=== PATIENT | female | born 1945 | race Caucasian/White ===

== ENCOUNTER 2018-06-20 18:09 | Inpatient (IN) | payer OTHER ==
--- NOTE | 2018-06-20 18:19 | EDPHY ---
H & P Time Seen by Provider: 06/20/18 18:14 HPI/ROS: CHIEF COMPLAINT: Shortness of breath HISTORY OF PRESENT ILLNESS: Brought in by EMS. The initial story was that she ran out of oxygen today. However when I interview the patient is she says she was at a nursing facility in [place] until about a month ago. She was discharged with oxygen concentrator but has been living in a van for at least the last 3 and half weeks with no place to plug it in. She has had COPD and quit smoking at age 41 but normally wears 3 L nasal cannula. She has been getting progressively more short of breath then today became a lot worse. She was unable to get [facility] the [facility] and so her caregiver Tony who is her son's girlfriend called 911 to have her transported to the ER. She does feel better with oxygen. She never had chest pain or cough or leg swelling or fever or chills. Symptoms were severe and now are mild. REVIEW OF SYSTEMS: Eye: no change in vision ENT: no sore throat Cardiac: no chest pain or syncope Pulmonary: HPI Abdomen: no vomiting, diarrhea, abdominal pain. Eating and drinking less, is hungry and thirsty. Musculoskeletal: no back pain Skin: no rash Neuro: no headache Constitutional: no fever : no urinary symptoms A comprehensive 10 point review of systems is otherwise negative aside from elements mentioned in the history of present illness. PAST MEDICAL HISTORY: COPD chronically on 3 L nasal cannula oxygen. Cardiac bypass 2 years ago in [place]. Diabetes. Tells me she was hospitalized last at [facility], records requested including EKG and chemistry. Social history: Homeless, lives in a van General Appearance: Alert and conversant, cooperative. Eyes: No scleral icterus. ENT, Mouth: slightly dry mucous membranes. Respiratory: Normal respiratory effort, breath sounds equal, lungs are clear to auscultation. Mildly tachypneic but 99% on 3 L nasal cannula. Cardiovascular: Regular rate and rhythm. Gastrointestinal: Abdomen is soft and non tender. Neurological: Alert, face symmetric, normal motor and sensory in extremities. Skin: Warm and dry, no rashes. Musculoskeletal: Bilateral 2+ peripheral edema but no calf tenderness. Psychiatric: Appears moderately anxious. Emergency Department course/MDM: CBC and chemistry, troponin and D-dimer. EKG and chest x-ray. 1926: BUN greater than 70, creatinine 2.1. Patient also unable to be discharged because no way to get her oxygen tonight. Hospitalist consult for admission, dyspnea and acute kidney injury. Normal saline 500 ml intravenous after discussion with hospitalist Dr. El. D-dimer is 1.3, unable to do CT a because of creatinine, bilateral venous ultrasound ordered. 2012: no DVT on bilateral US per Jorge. Constitutional: Initial Vital Signs Temperature (C) 36.8 C 06/20/18 18:18 Heart Rate 90 06/20/18 18:18 Respiratory Rate 20 06/20/18 18:18 Blood Pressure 170/116 H 06/20/18 18:18 O2 Sat (%) 92 06/20/18 18:18 O2 Delivery Mode Nasal Cannula O2 (L/minute) 3 Allergies/Adverse Reactions: diazepam [From Valium] Allergy (Verified 06/20/18 18:17) Home Medications: Medication Instructions Recorded Lantus 06/20/18 Xanax 06/20/18 Medical Decision Making - Diagnostics EKG Interpretation: 12-lead EKG interpreted by me; official reading is in computer system. My interpretation is sinus rhythm rate 78 with right bundle branch block. LVH with nonspecific anterior repolarization abnormality. Imaging Results: Imaging Impressions Chest X-Ray 06/20/18 18:29 Impression: Cardiac silhouette enlargement with sequela of prior CABG, but no evidence of CHF or focal infiltrate. Imaging: I viewed and interpreted images myself Differential Diagnosis: Differential diagnosis considered for shortness of breath including but not limited to pulmonary infectious process, COPD, asthma, pulmonary embolus and congestive heart failure. Consult/Admit Bed Type: [place] [id number] - Data Points Laboratory Results: Laboratory Results 06/20/18 19:00 06/20/18 19:00 06/20/18 06/20/18 06/20/18 19:17 19:00 19:00 WBC RBC Hgb Hct MCV MCH MCHC RDW Plt Count MPV Neut % (Auto) Lymph % (Auto) Armstrong % (Auto) Eos % (Auto) Baso % (Auto) Nucleat RBC Rel Count Absolute Neuts (auto) Absolute Lymphs (auto) Absolute Monos (auto) Absolute Eos (auto) Absolute Basos (auto) Absolute Nucleated RBC Immature Gran % Immature Gran # D-Dimer 1.31 ug/mLFEU H ug/mLFEU REJ (0.00-0.50) Sodium 134 mEq/L L mEq/L (135-145) Potassium 5.5 mEq/L H mEq/L (3.3-5.0) Chloride 93 mEq/L L mEq/L (97-110) Carbon Dioxide 27 mEq/l mEq/l (22-31) Anion Gap 14 mEq/L mEq/L (6-14) BUN 72 mg/dL H mg/dL (7-23) Creatinine 2.1 mg/dL H mg/dL (0.6-1.0) Estimated GFR 23 Glucose 281 mg/dL H mg/dL (70-100) Calcium 9.6 mg/dL mg/dL (8.5-10.4) POC Troponin I NT-Pro-B Natriuret Pep 32913 pg/mL H pg/mL (0-125) 06/20/18 06/20/18 19:00 18:43 WBC 10.07 10^3/uL H 10^3/uL (3.80-9.50) RBC 3.69 10^6/uL L 10^6/uL (4.18-5.33) Hgb 11.0 g/dL L g/dL (12.6-16.3) Hct 33.8 % L % (38.0-47.0) MCV 91.6 fL fL (81.5-99.8) MCH 29.8 pg pg (27.9-34.1) MCHC 32.5 g/dL g/dL (32.4-36.7) RDW 16.3 % H % (11.5-15.2) Plt Count 330 10^3/uL 10^3/uL (150-400) MPV 10.7 fL fL (8.7-11.7) Neut % (Auto) 61.0 % % (39.3-74.2) Lymph % (Auto) 27.5 % % (15.0-45.0) Armstrong % (Auto) 7.9 % % (4.5-13.0) Eos % (Auto) 2.6 % % (0.6-7.6) Baso % (Auto) 0.6 % % (0.3-1.7) Nucleat RBC Rel Count 0.0 % % (0.0-0.2) Absolute Neuts (auto) 6.14 10^3/uL 10^3/uL (1.70-6.50) Absolute Lymphs (auto) 2.77 10^3/uL 10^3/uL (1.00-3.00) Absolute Monos (auto) 0.80 10^3/uL 10^3/uL (0.30-0.80) Absolute Eos (auto) 0.26 10^3/uL 10^3/uL (0.03-0.40) Absolute Basos (auto) 0.06 10^3/uL 10^3/uL (0.02-0.10) Absolute Nucleated RBC 0.00 10^3/uL 10^3/uL (0-0.01) Immature Gran % 0.4 % % (0.0-1.1) Immature Gran # 0.04 10^3/uL 10^3/uL (0.00-0.10) D-Dimer Sodium Potassium Chloride Carbon Dioxide Anion Gap BUN Creatinine Estimated GFR Glucose Calcium POC Troponin I 0.04 ng/mL ng/mL (0.00-0.08) NT-Pro-B Natriuret Pep Medications Given: Albuterol/Ipratropium (Duoneb) 3 ml IH QID TERRIE Stop: 12/17/18 20:59 Last Admin: 06/20/18 21:44 Dose: Not Given Discontinued Medications Sodium Chloride (Ns) 500 mls @ 1,000 mls/hr IV EDNOW ONE PRN Reason: Protocol Stop: 06/20/18 20:06 Last Admin: 06/20/18 19:50 Dose: 500 mls Point of Care Test Results: Chemistry 06/20/18 18:43 POC Troponin I 0.04 ng/mL ng/mL (0.00-0.08) Departure - Departure Disposition: [facility] Inpatient Acute Clinical Impression: EBER (acute kidney injury) COPD (chronic obstructive pulmonary disease) Qualifiers: COPD type: unspecified COPD Qualified Code(s): J44.9 - Chronic obstructive pulmonary disease, unspecified Condition: Fair
--- NOTE | 2018-06-20 18:50 | CPEKG ---
Test Reason : OPEN Blood Pressure : / mmHG Vent. Rate : 078 BPM Atrial Rate : 078 BPM P-R Int : 235 ms QRS Dur : 134 ms QT Int : 460 ms P-R-T Axes : 066 -49 116 degrees QTc Int : 525 ms Sinus rhythm Prolonged TX interval Right bundle branch block LVH with IVCD and secondary repol abnrm Prolonged QT interval Confirmed by Ronen Fortune ([id number]) on 06/20/2018 6:49:54 PM Referred By: Confirmed By:Ronen Fortune
[2018-06-20 19:10] LABS: PLATELET COUNT 330 10^3/uL (150-400)
[2018-06-20] MEDS ORDERED: NS 500 ML IV ONE ×2 (19:27→19:37)
[2018-06-20] MEDS ORDERED: ONDANSETRON DISINTEGRATING 4 MG TAB PO PRN (19:44)
[2018-06-20] MEDS ORDERED: ACETAMINOPHEN 325 MG TAB PO PRN (19:44)
[2018-06-20] MEDS ORDERED: ONDANSETRON 4 MG/2 ML VIAL IVP PRN (19:44)
[2018-06-20] MEDS ORDERED: NS 1,000 ML IV SCH (19:45)
[2018-06-20] MEDS ORDERED: SODIUM POLY SULF 15 GM/60 ML BOTTLE PO ONE (20:57)
--- NOTE | 2018-06-20 21:23 | PDGENHP ---
History and Physical - Chief Complaint Acute shortness of breath - History of Present Illness Primary care provider: None HPI: 72-year-old female presents with acute shortness of breath characterized as inability to take a full breath with onset of symptoms approximately 3 weeks ago and persistent duration and worsening thereafter. Patient reports that the onset of symptoms: Sided to her being discharged from [facility], where she was discharged with a concentrator for 3LPM outpatient supplemental oxygen. Because the patient is homeless, she would have to plug her concentrator into the plastic eye technician outlet in the van in which she is living, and she has been unable to consistently do so for the past several weeks. Consequently, the patient began experiencing shortness of breath with associated weakness located in her bilateral lower extremities, resulting in her knees buckling with most activity. As a result, she has been mostly immobile in the van. She does endorse approximately 1 day ago she did have some associated chest pain characterized as a pounding sensation located in her central chest and it was transient in nature, currently gone. Her shortness of breath has been alleviated by placing her on 3 L supplemental oxygen in the emergency department. She also endorses low oral intake of solids and liquids secondary to inability to access in the context of her immobility. She reports she has continued to take her home medications, up through the morning doses of the day of presentation. She believes that she is taking a diuretic but does not know the names of any of her medications. She reports that she is not taking any inhalers. She is residing in this van with her son and his girlfriend. She relocated to [place] with her son approximately 2 months ago. Since that time, she was admitted to [facility] where she reports she received extensive testing, and was discharged to a [facility]. To his discharge from that facility 3 weeks ago. History Information - Allergies/Home Medication List Allergies/Adverse Reactions: diazepam [From Valium] Allergy (Verified 06/20/18 18:17) Home Medications: Lantus 06/20/18 [Last Taken Unknown] Xanax 06/20/18 [Last Taken Unknown] I have personally reviewed and updated: family history, medical history, social history, surgical history - Past Medical History Additional medical history: Chronic kidney disease, as reported to the patient [facility]. Coronary artery disease. CVA. COPD with chronic hypoxic respiratory failure, 3 liters/minute at baseline - Surgical History Reports: coronary bypass surgery (Approximately 2 years ago in [place]) - Family History Additional family history: No family history of end-stage renal disease, her son and his girlfriend have not had any recent respiratory symptoms - Social History Smoking Status: Former smoker Alcohol Use: None Drug Use: None Additional social history: Currently homeless, residing in a van with her son, relocated to [place] from [place] 2 months ago Review of Systems Review of Systems: ROS: 10pt was reviewed & negative except for what was stated in HPI & below Constitutional: Reports: weakness Cardiac: Reports: chest pain Respiratory: Reports: shortness of breath Physical Exam Physical Exam: Temp Pulse Resp BP Pulse Ox 36.4 C 80 16 161/95 H 100 06/20/18 20:40 06/20/18 20:40 06/20/18 20:40 06/20/18 20:40 06/20/18 20:40 O2 (L/minute) 3 Constitutional: no apparent distress, not in pain, chronically ill appearing, uncomfortable Eyes: PERRL, EOMI, scleral injection Ears, Nose, Mouth, Throat: moist mucous membranes, ears appear normal, no oral mucosal ulcers, hard of hearing Cardiovascular: regular rate and rhythym, no murmur, rub, or gallop, No edema Respiratory: no respiratory distress, no rales or rhonchi, clear to auscultation , No respiratory distress Gastrointestinal: normoactive bowel sounds, soft, non-tender abdomen, No distension Skin: warm, No rash Neurologic: AAOx3, No weakness, No facial droop Psychiatric: interacting appropriately, not anxious, not encephalopathic, thought process linear Lab Data & Imaging Review 06/20/18 19:00 06/20/18 19:00 WBC 10.07 10^3/uL (3.80-9.50) H 06/20/18 19:00 RBC 3.69 10^6/uL (4.18-5.33) L 06/20/18 19:00 Hgb 11.0 g/dL (12.6-16.3) L 06/20/18 19:00 Hct 33.8 % (38.0-47.0) L 06/20/18 19:00 MCV 91.6 fL (81.5-99.8) 06/20/18 19:00 MCH 29.8 pg (27.9-34.1) 06/20/18 19:00 MCHC 32.5 g/dL (32.4-36.7) 06/20/18 19:00 RDW 16.3 % (11.5-15.2) H 06/20/18 19:00 Plt Count 330 10^3/uL (150-400) 06/20/18 19:00 MPV 10.7 fL (8.7-11.7) 06/20/18 19:00 Neut % (Auto) 61.0 % (39.3-74.2) 06/20/18 19:00 Lymph % (Auto) 27.5 % (15.0-45.0) 06/20/18 19:00 [place] % (Auto) 7.9 % (4.5-13.0) 06/20/18 19:00 Eos % (Auto) 2.6 % (0.6-7.6) 06/20/18 19:00 Baso % (Auto) 0.6 % (0.3-1.7) 06/20/18 19:00 Nucleat RBC Rel Count 0.0 % (0.0-0.2) 06/20/18 19:00 Absolute Neuts (auto) 6.14 10^3/uL (1.70-6.50) 06/20/18 19:00 Absolute Lymphs (auto) 2.77 10^3/uL (1.00-3.00) 06/20/18 19:00 Absolute Monos (auto) 0.80 10^3/uL (0.30-0.80) 06/20/18 19:00 Absolute Eos (auto) 0.26 10^3/uL (0.03-0.40) 06/20/18 19:00 Absolute Basos (auto) 0.06 10^3/uL (0.02-0.10) 06/20/18 19:00 Absolute Nucleated RBC 0.00 10^3/uL (0-0.01) 06/20/18 19:00 Immature Gran % 0.4 % (0.0-1.1) 06/20/18 19:00 Immature Gran # 0.04 10^3/uL (0.00-0.10) 06/20/18 19:00 D-Dimer 1.31 ug/mLFEU (0.00-0.50) H 06/20/18 19:17 Sodium 134 mEq/L (135-145) L 06/20/18 19:00 Potassium 5.5 mEq/L (3.3-5.0) H 06/20/18 19:00 Chloride 93 mEq/L (97-110) L 06/20/18 19:00 Carbon Dioxide 27 mEq/l (22-31) 06/20/18 19:00 Anion Gap 14 mEq/L (6-14) 06/20/18 19:00 BUN 72 mg/dL (7-23) H 06/20/18 19:00 Creatinine 2.1 mg/dL (0.6-1.0) H 06/20/18 19:00 Estimated GFR 23 06/20/18 19:00 Glucose 281 mg/dL (70-100) H 06/20/18 19:00 Calcium 9.6 mg/dL (8.5-10.4) 06/20/18 19:00 POC Troponin I 0.04 ng/mL (0.00-0.08) 06/20/18 18:43 NT-Pro-B Natriuret Pep 01472 pg/mL (0-125) H 06/20/18 19:00 Visualized and Interpreted Chest x-ray results: Yes Chest X-Ray results: other (Cardiomegaly) Visualized and Interpreted EKG results: Yes EKG Interpretation: Positive for: other (Right bundle branch block with normal sinus rhythm, intraventricular conduction delay, PVCs) Assessment & Plan Assessment: 72-year-old female presents with shortness of breath in the setting of chronic hypoxic respiratory failure, suspected acute kidney injury on chronic kidney disease, hyperkalemia Plan: 1. Shortness of breath. Acute, new problem this provider, further workup indicated. Unclear whether the patient was purely experiencing hypoxia related symptoms secondary to inability to access supplemental oxygen prescribed for chronic hypoxic respiratory failure verses more acute conditions such as a pulmonary embolism or congestive heart failure -D-dimer positive, lower extremities negative for DVT, get V/Q scan in the setting of elevated serum creatinine level -given that she is not tachycardic, she is not experiencing chest pain, will hold off on heparin drip tonight unless the patient begins developing symptoms more suggestive of pulmonary embolism -will check echocardiogram to evaluate ejection fraction as the patient reports that she has heart muscle dysfunction and has an echo for comparison at [facility] approximately 2 months ago -will order outside records from [facility] as the patient reports extensive cardiac testing comma for comparison -will continue on supplemental oxygen 2. Chronic hypoxic respiratory failure. Patient has reported COPD and was prescribed supplemental oxygen at discharge from [facility] as well as from her penitentiary facility, and she has had inability to access supplemental oxygen due to homelessness -continue on 3 L nasal cannula 3. COPD. Chronic, no evidence of acute exacerbation, will provide her with DuoNeb treatments to see if this symptomatically improved her condition -would recommend establishing care with outpatient pulmonology, will start Advair at this time, recommend Spiriva at time of discharge 4. Coronary artery disease. Chronic, continue home medications once reconciled 5. Hyperkalemia. Secondary to acute kidney injury, give Kayexalate, repeat in a.m., monitor on telemetry 6. Suspected acute kidney injury on chronic kidney disease stage 3. Unclear creatinine baseline, will obtain records from [facility] to determine her creatinine level at time of their discharge -most likely acute hypovolemic component with ongoing use of diuretic as well as probable Yan inhibitor or ARB affect, depending on medication reconciliation -will give normal saline at 100 cc an hour and repeat serum creatinine level in a.m., monitoring strict I&Os and daily weights given her risk of CHF 7. Lower extremity weakness. Most likely secondary to a combination of undertreated conditions above as well as deconditioning from recent hospitalization -get PT and OT assessments -strong suspicion the patient may require penitentiary facility at time of discharge Diet. Renal Prophylaxis. High risk patient, heparin subcu Code. Do not resuscitate per patient, her son is MD WICK Disposition. Anticipated discharge uncertain this time, anticipated length stay is greater than 48 hr for reasonable medical necessity including acute kidney injury, respiratory failure, further workup required for high-level of medical complexity with high risk of worsening morbidity and/or mortality. I have discussed patient's presentation with Dr. Ronen Fortune, he and I both agree the patient meets inpatient criteria and is safe for the PCU.
[2018-06-20] MEDS: IPRATROPIUM/ALBUTEROL 3 ML DEYVIAL IH SCH (21:44)
[2018-06-21 06:12] LABS: PLATELET COUNT 273 10^3/uL (150-400)
[2018-06-21] MEDS: IPRATROPIUM/ALBUTEROL 3 ML DEYVIAL IH SCH ×4 (06:18→19:50)
--- NOTE | 2018-06-21 07:17 | PDMN ---
Medical Necessity Medical necessity: Pt meets IP criteria per & DANIELA M-[id number]; est los >2 mn for eval/tx of acute kidney injury w/hyperkalemia, respiratory failure & LE weakness ; admit for further workup/monitoring, IVFs, respiratory supportive care & therapies; comorbid CKD, CAD, CABG, CVA, COPD w/chronic respiratory failure & homelessness; per H&P & order 06/20/18
[2018-06-21] MEDS: FLUTICASONE/SALMETER 250/50MCG DISKUS IH SCH ×2 (09:13→19:51)
--- NOTE | 2018-06-21 12:28 | HOSPPROG ---
Hospitalist Progress Note Assessment/Plan: 72 yo female with h/o chronic hypoxemia in setting of CHF, COPD, Chronic hypoxemic respiratory failure 2/2 COPD and HF - Suspect increased HF symptoms, no e/o COPD exacerbation. Baseline O2 is 3 LPM. BNP elevated with crackles on exam. D dimer elevated, unable to get CTA with elevated Cr. -V/Q scan to further evaluate for PE- pt refused -resume bumex (was on 2 mg bid, will give 1 mg bid and watch renal function) -cont O2, at baseline 3 LPM -cont duonebs, start spiriva at dc -advair started, no indication for systemic steroids Acute systolic heart failure / ICM - per [facility] cards, EF was 20% on 04/11/2018 echo , repeat echo here EF is 40-45% with hypokinesis of unclear chronicity. -Bumex as above -monitor I&O's, daily weights -may warrant further ischemic eval, cardiology to consult H/O LV thrombus - per piping engineer at [facility], apical thrombus was present in 2017. She refused warfarin and was prescribed Xarelto at discharge, but I don' t think she is taking this -discussed echo with Dr Briggs, no obvious apical thrombus -likely repeat echo with definity study in am for further evaluation -will give 1 mg / kg lovenox now until this is sorted out CAD with h/o CABG in 2016 in [place] - CP free today. RBBB on ekg. Sounds like she is non-compliant with meds, but was Rx'd ASA, Coreg and statin -restart ASA, BB, statin -cardiology to consult as above EBER / CKD - Cr 2.1 on arrival, was 1.7-1.9 at [facility] after diuresis. Suspect cardiorenal syndrome. U/S here showed medical renal dz, nl PVR -send ua, urine Cr and Na- pt has been incontinent, difficulty obtaining specimen -monitor closely with diuretics Anemia - normocytic, suspect ACD, no e/o active bleeding -check hemoccult, outpt c-scope if positive -send iron studies H/O CVA - resume ASA, statin DM - bg's 200's, a1c pending -start basal/bolus insulin -no MTF with elevated Cr Cognitive impairment - she is A&O x3, with poor coping skills. She did not fill the Rx's sent to [facility] upon discharge from [facility] -cog eval requested -check CT brain given CVA hx DNR DVT PPLX - Lovenox tonight, reconsider anticoagualation tomorrow vs TERRIE Dispo - cont inpt. Pt is homeless, living in van with 2 other adults and large dog. CM involved for resources, PT/OT evals, may warrant SNF Subjective: Pt feels a bit better today. Not SOB at rest, had some CP, but not currently. No fevers/chills, cough or sputum production. She cries about concept of getting a new IV, "stop treating me like a pin cushion". Asks for her son. Objective: Vital Signs Temp Pulse Resp BP Pulse Ox 37.0 C 86 20 146/76 H 98 06/21/18 11:36 06/21/18 11:47 06/21/18 11:47 06/21/18 11:36 06/21/18 11:47 Laboratory Results 06/21/18 05:34 06/21/18 05:34 06/20/18 06/21/18 06/22/18 05:59 05:59 05:59 Intake Total 740 Balance 740 - Physical Exam Constitutional: no apparent distress Eyes: PERRL Ears, Nose, Mouth, Throat: moist mucous membranes Cardiovascular: regular rate and rhythym Respiratory: no respiratory distress, other (bibasilar crackles) Gastrointestinal: normoactive bowel sounds, soft, non-tender abdomen Skin: warm Musculoskeletal: generalized weakness Neurologic: AAOx3 Psychiatric: encephalopathic, poor insight, poor judgement, poor memory ICD10 Worksheet Patient Problems: Problems Problem Status Onset EBER (acute kidney injury) Acute COPD (chronic obstructive pulmonary disease) Acute
[2018-06-21] MEDS ORDERED: ALBUTEROL 3 ML DEYVIAL IH PRN (12:29)
[2018-06-21] MEDS ORDERED: ASPIRIN EC 81 MG TAB PO SCH (12:45)
--- NOTE | 2018-06-21 13:05 | ECHO ---
[email or web address] [address] Main: [phone] Fax: Transthoracic Echocardiogram Name: ALMA SCHWARTZ MR#: [id number] Study Date: 06/21/2018 Study Time: 11:16 AM Date of : 1945 Age: 72 year(s) Height: 157.5 cm (62 in.) Weight: 77.11 kg (170 lb.) BSA: 1.78 m2 Gender: Female Examination: Echo Indication: Cardiac: dyspnea, Hx of CABG Image Quality: Contrast: Requested by: Charles El BP: 160 mmHg/84 mmHg Heart Rate: Rhythm: Indication: Cardiac: dyspnea, Hx of CABG Procedure Staff Transplant Nurse Practitioner: Duy Mckeon RDCS Reading Physician: Edward Briggs MD Requesting Provider: Measurements: Chambers Valvular Assessment AV/MV Valvular Assessment TV/PV Normal Normal Normal Name Value Range Name Value Range Name Value Range Ao Agata (MM): 2.9 cm (2.2 cm-3.7 AV Vmax: 1.71 m/s (1 m/s-1.7 PV Vmax: 0.96 m/s (0.6 m/s-0.9 cm) m/s) m/s) IVSd (2D): 1.2 cm (0.6 cm-1.1 AV maxP mmHg ( - ) PV PGmax: 4 mmHg ( - ) cm) LVOT Vmax: 0.95 m/s (0.7 m/s-1.1 LVDd (2D): 5.3 cm (3.9 cm-5.3 m/s) cm) MV E Vmax: 1.39 m/s ( - ) LVDs (2D): 4.1 cm (2.1 cm-4 cm) LVPWd (2D): 1.0 cm ( - ) LVEF (BP): 43 % (>=55 %) Continued Measurements: Chambers Valvular Assessment AV/MV Name Value Name Value LADs Lon.3 cm MV E' Septal: 0.06 m/s LA Area: 22.0 cm2 MV E/E' Septal: 23.00 LA Volume: 59 ml MV E/E' Lateral: 14.40 LA Volume Index: 33.1 ml/m2 Findings: Left Ventricle: Normal size left ventricle. Diastolic dysfunction is present. . There is inferior, inferoseptal hypokinesis and apical hypokinesis with the EF estimated at 40-45%. Right Ventricle: Patient: ALMA SCHWARTZ Study Date: 06/21/2018 Page 1 of 2 11:16 AM Normal size right ventricle. Normal RV function. Left Atrium: The left atrium is normal in size. Right Atrium: The right atrium is normal in size. Mitral Valve: Mild mitral valve leaflet calcification is present. Trivial to mild mitral regurgitation. Aortic Valve: Mild aortic cusp calcification is noted. Trivial aortic valve regurgitation. No aortic valve stenosis is present. Tricuspid Valve: The tricuspid valve is normal in appearance and function. Pulmonic Valve: The pulmonic valve is normal in appearance and function. Aorta: The aorta is normal. Pericardium: No pericardial effusion. (No Signature Object) Patient: ALMA SCHWARTZ Study Date: 06/21/2018 Page 2 of 2 11:16 AM [id number]
[2018-06-21] MEDS ORDERED: CLOPIDOGREL BISULFATE 75 MG TAB PO SCH (13:45)
[2018-06-21] MEDS ORDERED: D50W 25 GM/50 ML SYR IVP PRN (13:48)
[2018-06-21] MEDS ORDERED: HEPARIN 5,000 UNIT/0.5 ML INJ SC SCH (14:00)
[2018-06-21] MEDS ORDERED: CARVEDILOL 25 MG TAB PO SCH (14:16)
[2018-06-21] MEDS ORDERED: ENOXAPARIN 40 MG/0.4 ML SYR SC ONE (14:43)
--- NOTE | 2018-06-21 15:02 | PDCARCONS ---
Cardiology Consult Reason for Consult: Known coronary artery disease, prior coronary artery bypass graft surgery, current admission with dyspnea. Chief Complaint: Shortness of breath. Requesting Physician: Dr. Divina Light. History of Present Illness: This is a 72-year-old female seen in consultation on the progressive care unit. She has known cardiovascular disease to include coronary artery disease with previous bypass surgery in 2016 at [facility] by Dr. Wilder. She states, that at that time, she has presented with an acute myocardial infarction. She underwent coronary artery bypass graft surgery during that hospitalization. She has not required any additional treatments per her recollection. Additionally, she has a history of hypertension, hyperlipidemia and chronic renal insufficiency. She was recently hospitalized at [facility] and released to a fdc facility where she remained up until April 13. During that hospitalization she was treated for congestive heart failure. Apparently, her ejection fraction was noted to be about 25% and it was thought that she had a left ventricular apical thrombus. She was subsequently discharged on appropriate guideline directed medical therapy which , per the report of the on-call first aid attendant at [facility], included systemic anticoagulation in the form of Xarelto. Furthermore, she has a history of COPD which is oxygen dependent. Apparently, she has been on 3 L nasal cannula oxygen ever since her cardiac surgery 2 years ago. Unfortunately, she is currently homeless. She lives in a van with her son and her son's girlfriend as well as 2 dogs. She does not smoke however apparently the son and son's girlfriend both smoke and at time smoke in the van. She has not been able to wear her oxygen as she has not had a place to plug in her concentrator. She states that she has been experiencing significant shortness of breath. Her sensation of dyspnea tends to occur regardless of being active or being sedentary. She has not had orthopnea. She notes no significant edema. She also notes no fever, chills, sweats or cough. She states that she is unable to walk. Apparently her legs have been weak ever since her heart surgery. She has a wheelchair that she uses. Because of her dyspnea her son's girlfriend called EMS and she was brought to the hospital here and admitted. After being placed back on nasal cannula oxygen she states that she feels much better and in fact she feels wonderful. She feels back to her baseline. At no time did she have chest pain. History Information - Allergies/Home Medication List Allergies/Adverse Reactions: diazepam [From Valium] Allergy (Verified 06/20/18 18:17) Home Medications: Lantus 06/20/18 [Last Taken Unknown] Xanax 06/20/18 [Last Taken Unknown] I have personally reviewed and updated: family history, medical history, social history, surgical history Past Medical History: - Past Medical History Additional medical history: Coronary artery disease as described above, type 2 diabetes mellitus currently insulin dependent, COPD currently oxygen dependent, chronic renal insufficiency with a baseline creatinine between 1.82, hypertension, hyperlipidemia, possible left ventricular apical thrombus. - Surgical History Additional surgical history: Coronary artery bypass graft surgery as described above, cholecystectomy, lung biopsy. - Family History Positive for: non-pertinent - Social History Smoking Status: Former smoker Alcohol Use: None Drug Use: None Additional social history: She currently is homeless. She lives in a van with her son, her son's girlfriend and 2 dogs. She is unable to walk. She smoked up until her mid 30s. She uses no alcohol or drugs. She has 3 other children who were not located in the local area here. Physical Exam Physical Exam: Temp Pulse Resp BP Pulse Ox 37.0 C 86 20 146/76 H 98 06/21/18 11:36 06/21/18 11:47 06/21/18 11:47 06/21/18 11:36 06/21/18 11:47 O2 (L/minute) 2 Lab and Imaging 06/21/18 05:34 06/21/18 05:34 WBC 7.38 10^3/uL (3.80-9.50) 06/21/18 05:34 RBC 3.12 10^6/uL (4.18-5.33) L 06/21/18 05:34 Hgb 9.3 g/dL (12.6-16.3) L 06/21/18 05:34 Hct 28.8 % (38.0-47.0) L 06/21/18 05:34 MCV 92.3 fL (81.5-99.8) 06/21/18 05:34 MCH 29.8 pg (27.9-34.1) 06/21/18 05:34 MCHC 32.3 g/dL (32.4-36.7) L 06/21/18 05:34 RDW 16.3 % (11.5-15.2) H 06/21/18 05:34 Plt Count 273 10^3/uL (150-400) 06/21/18 05:34 MPV 10.2 fL (8.7-11.7) 06/21/18 05:34 Neut % (Auto) 60.5 % (39.3-74.2) 06/21/18 05:34 Lymph % (Auto) 27.1 % (15.0-45.0) 06/21/18 05:34 Gilchrist % (Auto) 7.7 % (4.5-13.0) 06/21/18 05:34 Eos % (Auto) 3.9 % (0.6-7.6) 06/21/18 05:34 Baso % (Auto) 0.5 % (0.3-1.7) 06/21/18 05:34 Nucleat RBC Rel Count 0.0 % (0.0-0.2) 06/21/18 05:34 Absolute Neuts (auto) 4.46 10^3/uL (1.70-6.50) 06/21/18 05:34 Absolute Lymphs (auto) 2.00 10^3/uL (1.00-3.00) 06/21/18 05:34 Absolute Monos (auto) 0.57 10^3/uL (0.30-0.80) 06/21/18 05:34 Absolute Eos (auto) 0.29 10^3/uL (0.03-0.40) 06/21/18 05:34 Absolute Basos (auto) 0.04 10^3/uL (0.02-0.10) 06/21/18 05:34 Absolute Nucleated RBC 0.00 10^3/uL (0-0.01) 06/21/18 05:34 Immature Gran % 0.3 % (0.0-1.1) 06/21/18 05:34 Immature Gran # 0.02 10^3/uL (0.00-0.10) 06/21/18 05:34 D-Dimer 1.31 ug/mLFEU (0.00-0.50) H 06/20/18 19:17 Sodium 137 mEq/L (135-145) 06/21/18 05:34 Potassium 4.6 mEq/L (3.3-5.0) 06/21/18 05:34 Chloride 100 mEq/L (97-110) 06/21/18 05:34 Carbon Dioxide 26 mEq/l (22-31) 06/21/18 05:34 Anion Gap 11 mEq/L (6-14) 06/21/18 05:34 BUN 65 mg/dL (7-23) H 06/21/18 05:34 Creatinine 2.0 mg/dL (0.6-1.0) H 06/21/18 05:34 Estimated GFR 25 06/21/18 05:34 Glucose 202 mg/dL (70-100) H 06/21/18 05:34 Calcium 8.6 mg/dL (8.5-10.4) 06/21/18 05:34 Magnesium 2.1 mg/dL (1.6-2.3) 06/21/18 05:34 Iron 87.0 mcg/dL (37.0-170.0) 06/21/18 05:34 TIBC 279 ug/dL (260-490) 06/21/18 05:34 Iron Saturation 31 % (20-55) 06/21/18 05:34 Total Bilirubin 0.6 mg/dL (0.1-1.4) 06/21/18 05:34 AST 32 IU/L (14-46) 06/21/18 05:34 ALT 30 IU/L (9-52) 06/21/18 05:34 Alkaline Phosphatase 105 IU/L (38-126) 06/21/18 05:34 POC Troponin I 0.04 ng/mL (0.00-0.08) 06/20/18 18:43 NT-Pro-B Natriuret Pep 49911 pg/mL (0-125) H 06/20/18 19:00 Total Protein 5.8 g/dL (6.3-8.2) L 06/21/18 05:34 Albumin 3.2 g/dL (3.5-5.0) L 06/21/18 05:34 Laboratory Tests 06/20/18 06/20/18 06/20/18 18:43 19:00 19:17 D-Dimer 1.31 H POC Troponin I 0.04 NT-Pro-B Natriuret Pep 61225 H Visualized and Interpreted Chest x-ray results: Yes Chest X-ray Interpretation: no infiltrate, other (Cardiomegaly) Visualized and Interpreted imaging results: No Visualized and Interpreted EKG results: Yes EKG additional interpertation: Normal sinus rhythm. First-degree AV block measuring 235 milliseconds. Right bundle branch block. Left ventricular hypertrophy. ST-T changes consistent with the presence of a bundle branch block. Telemetry: Normal sinus rhythm. Echocardiogram: There is a full and separately detailed report on the chart. A/P Assessment: 1. Dyspnea. Based on the description of her symptoms it sounds like she became very short of breath during a period of time when she was not able to use her supplemental oxygen. She states that her respiratory status has returned to baseline and that she feels much better after having been put back on oxygen. Her symptoms occur mostly at rest. I think this is not likely to be related to underlying ischemia. I think this is due to a combination of mild underlying heart failure as well as COPD. By examination she appears to be very well compensated. There is no indication of an active COPD exacerbation or acute infectious process. She does have an elevated D-dimer. Lower extremities scan has not revealed any DVT. There are plans to do a V/Q scan which I think is reasonable. 2. Coronary artery disease. Clinically this appears to be stable. She does have a history of per her report of a myocardial infarction-cardiac enzymes are negative. There is no indication of active ischemia present. She does have wall motion abnormalities on her echocardiogram in the region of the apex and inferior duvall. The chronicity of these wall motion abnormalities is not known at the present time. 3. Ischemic cardiomyopathy. Historically, she has had an ejection fraction as low as 25%. 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 This is associated, at the present time, with very mild congestive heart failure by exam. 4. Chronic systolic congestive heart failure. As noted above she appears only mildly volume overloaded. She does have a markedly elevated brain atretic peptide which is disproportionate to her physical examination and radiographic findings. 5. Possible left ventricular apical thrombus. In reviewing her echocardiogram there was no obvious presence of an apical thrombus. In the apical views there is a reverberation in the left ventricular apex which could be related to a thrombus or potentially an artifact. 6. COPD. This is noted in the absence of an active exacerbation. 7. Hypertension. Poorly controlled. 8. Chronic renal insufficiency. She is near baseline. Hyperlipidemia. As an outpatient she is on statin therapy. 9. Type 2 diabetes mellitus. She is treated with insulin as an outpatient. 10. Psychosocial issues. She is homeless. She has some evidence of cognitive dysfunction. Plan: 1. She has been started back on guideline directed medical therapy. Specifically, she has been placed on a low-dose of Coreg, aspirin, bumetanide and atorvastatin.. Yan inhibitor therapy can be considered here in the near future depending on her clinical course and the stability of her renal insufficiency. 2. I would like her to get a single dose of Lovenox tonight. 3. We will plan for an echocardiogram with definity contrast in the morning to further assess for the presence of a left ventricular apical thrombus. 4. I have sent for records from [facility] regarding her initial presentation with coronary artery disease. 5. I would also like to get her recent records from [facility]. 6. Depending on the results of the above records search and her clinical course she may benefit from further diagnostic studies or therapeutic procedures. 7. I believe the most difficult aspect of her care will be trying to arrange for a suitable environment for her to live. Review of Systems Review of Systems: - Review of Systems Constitutional: no symptoms reported EENTM: no symptoms reported Respiratory: see HPI Cardiac: see HPI Gastrointestinal/Abdominal: no symptoms reported Genitourinary: no symptoms Musculoskelatal: no symptoms Skin: no symptoms Neurological: no symptoms Hematologic/Lymphatic: no symptoms reported Immunologic/allergic: no symptoms reported All Other Systems: Reviewed and Negative
[2018-06-21] MEDS: ATORVASTATIN CALCIUM 40 MG TAB PO SCH (15:56)
[2018-06-21] MEDS: ASPIRIN EC 81 MG TAB PO SCH (15:57)
[2018-06-21] MEDS: BUMETANIDE 1 MG TAB PO SCH (15:57)
--- NOTE | 2018-06-21 16:17 | ASMTCMCOM ---
CM Note CM Note Notes: Case Management Chart Review for Discharge Support: Patient is 72 year old female admitted via [facility] ED for Shortness of Breath. CM met with patient, patient states she can't see or hear. Patient sates she is currently living in a van with son Jose and sons girlfriend. She states she has not been able to use oxygen while living in the van. She does not have Jose's phone number, patient seems unable to understand CM questions and does not have clear answers. Cognitive eval has been ordered. PT/OT has been ordered, awaiting recommendations. Patient states she does not know if she has Medicaid, CM to send email for LTC Medicaid assessment. CM to follow. Plan: TBD Date Signed: 06/21/2018 04:17 PM Electronically Signed By:Ashley Hays
[2018-06-21] MEDS: CARVEDILOL 25 MG TAB PO SCH (18:26)
[2018-06-21] MEDS: INSULIN LISPRO 100 UNIT/ML SC SCH ×2 (18:26→23:12)
[2018-06-21] MEDS ORDERED: INSULIN GLARGINE 100 UNITS/ML UNIT SC SCH (21:00)
[2018-06-22] MEDS: IPRATROPIUM/ALBUTEROL 3 ML DEYVIAL IH SCH ×4 (05:46→21:28)
[2018-06-22] MEDS ORDERED: PERFLUTREN LIPID MICROSPHERES 1.1 MG/ML VIAL IV ONE (09:30)
[2018-06-22] MEDS: ATORVASTATIN CALCIUM 40 MG TAB PO SCH (10:07)
[2018-06-22] MEDS: ASPIRIN EC 81 MG TAB PO SCH (10:07)
[2018-06-22] MEDS: INSULIN LISPRO 100 UNIT/ML SC SCH ×4 (10:07→22:13)
[2018-06-22] MEDS: BUMETANIDE 1 MG TAB PO SCH ×2 (10:07→16:35)
[2018-06-22] MEDS: FLUTICASONE/SALMETER 250/50MCG DISKUS IH SCH ×2 (10:10→21:28)
[2018-06-22] MEDS: CARVEDILOL 25 MG TAB PO SCH (10:38)
--- NOTE | 2018-06-22 10:42 | PDCARPN ---
Cardiology Progress Note Chief Complaint: shortness of breath/extensive CV history Assessment/Plan: Assessment: 72-y/o F with undefined psychiatric issues, admitted with dyspnea. She has a history of CAD/CABG x2 reportedly done in [place] 2 years ago, htn, T2DM on insulin, CKD, dyslipidemia, COPD with CHRF on 2 lpmof supplemental O2. Per chart review, it is reported that she was hospitalized at a [facility] facility recently for CHF exacerbation. At that time, EF was noted to be 25% and LV apical thrombus was identified and so she was started on Xarelto. #. dyspnea: likely multifactorial from not having her O2, recent change to colder weather (living in her van), and known heart disease continue to treat with supplemental O2 #. CAD: no c/o angina Echo shows some regional WMA/ trop negative will likely be a candidate for outpatient stress test continue medical management with ASA, statin, Carvedilol #. LV apical thrombus: records from [facility] are still pending we reviewed with patient rationale for Definity study to identify if thrombus remains but patient refuses another attempt at IV or PICC line will therefore be obligated to resume systemic anticoagulation/ as she was previously on Xarelto, this will be resumed now cog eval pending to determine decisional capacity #. CKD: Cr reported to be above her typical baseline now at 2 will defer ACEi initiation #. SCHF: EF 40-45% which is a reported improvement from her previous echo NpBNP 11.5K but patient appears euvolemic and CXR without CHF back on her home Bumex #. homelessness: pt currently living in [place] with 2 dogs and son and his girlfriend it would be preferability for her health if she had a more stable/safer living situation 06/22/18 10:42 Subjective: Pt feels breathing improved. Reviewed/Discussed With: hospitalist (Dr. Elizabeth) Objective: Vital Signs (8 Hrs) Temp Pulse Resp BP Pulse Ox 06/22/18 10:13 72 18 93 06/22/18 08:00 98.1 F 71 22 H 164/66 H 95 06/22/18 04:00 98.2 F 67 20 131/80 H 99 Intake/Output (24 Hrs) 06/21/18 06/22/18 06/23/18 05:59 05:59 05:59 Intake Total 740 1290 Balance 740 1290 Intake: Oral (ml) 240 1290 IV Infused (ml) 500 Other: Weight 77.24 kg Number of Voids 3 Diapers/Briefs 1 Incontinence 2 1 Number of Stools Bedside Commode 1 Diapers/Briefs 1 Incontinence 2 Result Diagrams: 06/21/18 05:34 06/21/18 05:34 EKG: personall interpreted shows SR, RBBB, REINA, 1st deg AVB, LAFB Echocardiogram: EF 40-45%, in, inf-sept, apical HK, mild MAC with trivial to mild MR - Physical Exam Constitutional: no apparent distress Eyes: PERRL, anicteric sclera Ears, Nose, Mouth, Throat: other ([place]) Cardiovascular: regular rate and rhythm, no murmurs Respiratory: reduced air movement Gastrointestinal: normoactive bowel sounds Skin: warm, no edema Psychiatric: cooperative, flat affect ICD10 Worksheet Patient Problems: Problems Problem Status Onset EBER (acute kidney injury) Acute COPD (chronic obstructive pulmonary disease) Acute
[2018-06-22] MEDS ORDERED: RIVAROXABAN 20 MG TAB PO SCH (12:00)
--- NOTE | 2018-06-22 12:03 | ASMTCMCOM ---
CM Note CM Note Notes: 06/22/2018 Case Management Note Met w/pt to discuss d/c needs. Pt asked where her son was multiple times but was unable to provide a phone number. There is no contact info in the demographics section of pt chart. This is pt first admit to [facility]. PT is recommending SNF rehab. Pt reports previous stay at [facility]. Faxed referral via all scripts. Faxed multiple referrals to SNF rehabs in [facility] and nearby communities. Completed non triggering PASSR. Case Management d/c poc: SNF rehab pending acceptance. Case Management to follow. Date Signed: 06/22/2018 12:02 PM Electronically Signed By:Deidre Arriaga RN
--- NOTE | 2018-06-22 17:03 | HOSPPROG ---
Hospitalist Progress Note Assessment/Plan: #Dyspnea: from being off oxygen. CDM is well-compensated -cannot do V/Q since refusing IV #CAD: no anginal symptoms. ASA, statin, Coreg #CKD: Cr 2 (baseline per labs in [facility]) #LV apical thrombus: Card planned to perform dedicated echo today, but she refused IV, thus will cont AC with Eliquis #Compensated systolic HF: EF improved 25%--> 45%. Euvolemic. Bumex, Coreg #HTN: Coreg started #Uncontrolled DM: A1c 10. Increase Glargine to 15units, SSI #Diet: cardiac #Disp: cont inpatient admission for BP control. Subjective: dyspnea improved with oxygen. No chest pain Objective: Vital Signs Temp Pulse Resp BP Pulse Ox 36.6 C 75 18 179/82 H 95 06/22/18 16:00 06/22/18 16:00 06/22/18 16:00 06/22/18 12:00 06/22/18 16:00 Laboratory Results 06/21/18 05:34 06/21/18 05:34 06/21/18 06/22/18 06/23/18 05:59 05:59 05:59 Intake Total 740 1290 Balance 740 1290 - Time Spent With Patient Time Spent with Patient: greater than 35 minutes Time Spent with Patient: Greater than 35 minutes spent on this patients care, greater than 50% of time spent counseling, educating, and coordinating care regarding the above mentioned plan. - Physical Exam Constitutional: no apparent distress Eyes: PERRL, other (poor vision, BL) Ears, Nose, Mouth, Throat: moist mucous membranes Cardiovascular: regular rate and rhythym Respiratory: no respiratory distress, reduced air movement Gastrointestinal: normoactive bowel sounds Genitourinary: no bladder fullness Skin: warm Musculoskeletal: full muscle strength Neurologic: AAOx3, CN II-XII Intact Psychiatric: anxious, flat affect ICD10 Worksheet Patient Problems: Problems Problem Status Onset EBER (acute kidney injury) Acute COPD (chronic obstructive pulmonary disease) Acute
[2018-06-22] MEDS ORDERED: CARVEDILOL 6.25 MG TAB PO ONE (17:15)
[2018-06-22] MEDS: CARVEDILOL 6.25 MG TAB PO SCH (18:34)
[2018-06-22] MEDS: INSULIN GLARGINE 100 UNITS/ML UNIT SC SCH (22:13)
[2018-06-22] MEDS: APIXABAN 5 MG TAB PO SCH (22:13)
[2018-06-23] MEDS: IPRATROPIUM/ALBUTEROL 3 ML DEYVIAL IH SCH ×2 (05:42→09:17)
[2018-06-23] MEDS: FLUTICASONE/SALMETER 250/50MCG DISKUS IH SCH (09:17)
[2018-06-23] MEDS: ASPIRIN EC 81 MG TAB PO SCH (09:37)
[2018-06-23] MEDS: APIXABAN 5 MG TAB PO SCH ×2 (09:37→22:09)
[2018-06-23] MEDS: ATORVASTATIN CALCIUM 40 MG TAB PO SCH (09:37)
[2018-06-23] MEDS: CARVEDILOL 6.25 MG TAB PO SCH ×2 (09:37→18:29)
[2018-06-23] MEDS: BUMETANIDE 1 MG TAB PO SCH ×2 (09:37→16:10)
[2018-06-23] MEDS: INSULIN LISPRO 100 UNIT/ML SC SCH ×4 (09:38→22:09)
[2018-06-23] MEDS ORDERED: IPRATROPIUM/ALBUTEROL 3 ML DEYVIAL IH PRN (09:44)
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
--- NOTE | 2018-06-23 14:30 | PDCARPN ---
Cardiology Progress Note Chief Complaint: SCHF/dyspnea Assessment/Plan: Assessment: 72-y/o F admitted with dyspnea. She has a history of CAD/CABG x2 in 2013, htn, T2DM on insulin, CKD, dyslipidemia, COPD with CHRF on 2 lpm of supplemental O2. Per chart review, it is reported that she was hospitalized at a [facility] facility recently for CHF exacerbation. At that time, EF was noted to be 25% and LV apical thrombus was identified and so she was started on Xarelto. I have personally reviewed 50+ pages of records from [facility] for admission from 01/12-01/17/18 for dyspnea. Imaging included V/Q (negative) and echo. She was discharged on palliative services to SNF. #. dyspnea: likely multifactorial from not having her O2, recent change to colder weather (living in her van), and known heart disease continue to treat with supplemental O2 #. CAD: no c/o angina Echo shows some regional WMA/ trop negative will likely be a candidate for outpatient stress test continue medical management with ASA, statin, Carvedilol #. LV apical thrombus: records from [facility] are still pending we reviewed with patient rationale for Definity study to identify if thrombus remains but patient refuses another attempt at IV or PICC line will therefore be obligated to resume systemic anticoagulation/ due to CrCl she will be placed on Eliquis Echo from admission in [place] reviewed/EF 20% with apical thrombus (first noted in 2014) #. CKD: Cr reported to be above her typical baseline now at 2 will defer ACEi initiation #. SCHF: EF 40-45% which is an improvement from her previous echo of EF 20% ( echo from fax from [place]) NpBNP 11.5K but patient appears euvolemic and CXR without CHF back on her home Bumex #. homelessness: pt currently living in [place] with 2 dogs and son and his girlfriend it would be preferable for her health if she had a more stable/safer living situation 06/23/18 14:08 Subjective: Pt feels breathing is better on supplemental O2. No edema or cp. Reviewed/Discussed With: hospitalist (Dr. Elizabeth) Objective: Vital Signs (8 Hrs) Temp Pulse Resp BP Pulse Ox 06/23/18 11:39 98.3 F 72 18 138/61 H 95 06/23/18 09:08 98.6 F 65 18 130/65 H 94 Intake/Output (24 Hrs) 06/22/18 06/23/18 06/24/18 05:59 05:59 05:59 Intake Total 1290 300 Balance 1290 300 Intake: Oral (ml) 1290 300 Other: Intake Quantity Yes Sufficient Number of Voids Incontinence 2 3 1 Number of Stools Bedside Commode 1 Incontinence 2 1 Result Diagrams: 06/21/18 05:34 06/21/18 05:34 Telemetry: SR - Physical Exam Constitutional: no apparent distress Eyes: anicteric sclera Cardiovascular: regular rate and rhythm Respiratory: reduced air movement Skin: warm, No erythema Psychiatric: flat affect ICD10 Worksheet Patient Problems: Problems Problem Status Onset EBER (acute kidney injury) Acute COPD (chronic obstructive pulmonary disease) Acute
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
[2018-06-23] MEDS ORDERED: INSULIN LISPRO 100 UNIT/ML SC SCH (18:00)
[2018-06-23] MEDS: INSULIN GLARGINE 100 UNITS/ML UNIT SC SCH (22:08)
[2018-06-24] MEDS: FLUTICASONE/SALMETER 250/50MCG DISKUS IH SCH ×2 (00:03→08:55)
[2018-06-24] MEDS: APIXABAN 5 MG TAB PO SCH (09:08)
[2018-06-24] MEDS: BUMETANIDE 1 MG TAB PO SCH ×2 (09:08→14:25)
[2018-06-24] MEDS: ASPIRIN EC 81 MG TAB PO SCH (09:08)
[2018-06-24] MEDS: CARVEDILOL 6.25 MG TAB PO SCH (09:08)
[2018-06-24] MEDS: ATORVASTATIN CALCIUM 40 MG TAB PO SCH (09:08)
[2018-06-24] MEDS: INSULIN LISPRO 100 UNIT/ML SC SCH ×2 (09:09→14:25)
[2018-06-24] MEDS ORDERED: LORazepam 1 MG TAB PO PRN (11:45)
[2018-06-24 15:13] VITALS: BP 175/84
--- NOTE | 2018-06-24 16:44 | PDIAF ---
- Diagnosis Diagnosis: CHF, COPD Code Status: Do Not Resuscitate - Medication Management Discharge Medications: Medications to Continue on Transfer Apixaban [Eliquis] 5 mg PO BID #60 tab 06/24/18 [Last Taken Unknown] Aspirin EC [Aspirin EC 81 mg (*)] 81 mg PO DAILY #30 tab 06/24/18 [Last Taken Unknown] Atorvastatin Calcium [Lipitor 40 mg (*)] 40 mg PO DAILY #30 tab 06/24/18 [Last Taken Unknown] Bumetanide [Bumex (*)] 1 mg PO BIDDIUR #60 tab 06/24/18 [Last Taken Unknown] Carvedilol [Coreg (*)] 6.25 mg PO BIDMEAL #60 tab 06/24/18 [Last Taken Unknown] Fluticasone/Salmeter 250/50Mcg [Advair 250/50 (*)] 1 puffs IH BID #1 disk [Last Taken Unknown] Insulin Glargine [Lantus Syringe] 15 units SC HS #30 unit 06/24/18 [Last Taken Unknown] Discharge Medications: Refer to the Discharge Home Medication list for PRN reason. - Orders Services needed: Physical Therapy, Occupational Therapy Diet Recommendation: no restrictions on diet Additional Instructions: Outpatient stress test if patient is willing to follow-up with cardiology - Labs/Radiology BMP Date: 06/29/18 - Follow Up Care Current Providers and Referrals: Patient,NotPresent [Unknown] - As per Instructions Yessica Palmer PA [Physician Director Immunology] -
--- NOTE | 2018-06-24 17:06 | ASMTLACE ---
LACE Length of stay for Answers: 3 days current admission Acuity / Level of Answers: Yes Care: Did the patient have an inpatient admission? Comorbidities - select Answers: Cerebrovascular disease all that apply (CVA, TIA, aneurysms, vasc ular dementia) Chronic pulmonary disease Coronary Artery Disease Mild liver or renal disease # of Emergency department Answers: 1-2 visits in the last 6 months Social determinants Answers: Homelessness (street, senior care) Lack of community resources and/or lack of social support (no pcp, lives alone, transportation, jaziel d) Score: 21 Date Signed: 06/24/2018 05:04 PM Electronically Signed By:Deidre Arriaga RN
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
--- NOTE | 2018-06-30 11:48 | PQFORM ---
PHYSICIAN QUERY FORM Needs Your Response This query form is being sent to you to assure this patient record is coded properly. Please respond to the question below: CRAYON SORTING MACHINE FEEDER QUESTION: Dear Dr. Espinosa, On Dr. Light's progress note of 06/21, she mentions Acute systolic heart failure with the EF increasing from 20% in April to 40-45% upon admission[place] [address] upon admission and was given Bumex. Based on the clinical indicators and your professional judgment, can the diagnosis of chronic systolic heart failure on the discharge summary be further specified as: x Acute on chronic systolic heart failure Acute systolic heart failure Other No further clarification needed Thank you for clarifying, BUTCH Fournier HIM Coding INSTRUCTIONS FOR RESPONSE: Answer question by clicking on the "Edit Document" button. Move cursor to area below the stars. When complete, hit "Save." Click on the "Sign" button, then click "Sign" again. Type in your PIN and hit "Enter." MTDD
== END 2018-06-24 17:40 | DRG 189 ==
LOC: EEVIPCON 19:38 → F2W 20:20
PROVIDERS: ADMIT Internal Medicine; ATTEND Internal Medicine
DX: J96.20 Acute and chronic respiratory failure, unspecified whether with hypoxia or hypercapnia (principal); I13.0 Hypertensive heart and chronic kidney disease with heart failure and stage 1 through stage 4 chronic kidney disease, or unspecified chronic kidney disease; I50.23 Acute on chronic systolic (congestive) heart failure; J81.1 Chronic pulmonary edema; N17.9 Acute kidney failure, unspecified; N18.3 Chronic kidney disease, stage 3 (moderate); E11.22 Type 2 diabetes mellitus with diabetic chronic kidney disease; E11.65 Type 2 diabetes mellitus with hyperglycemia; I25.5 Ischemic cardiomyopathy; I51.3 Intracardiac thrombosis, not elsewhere classified; I25.10 Atherosclerotic heart disease of native coronary artery without angina pectoris; J44.9 Chronic obstructive pulmonary disease, unspecified; D64.9 Anemia, unspecified; F32.9 Major depressive disorder, single episode, unspecified; Z66 Do not resuscitate; Z91.19 Patient's noncompliance with other medical treatment and regimen; Z59.0 Homelessness; Z86.73 Personal history of transient ischemic attack (TIA), and cerebral infarction without residual deficits; Z99.81 Dependence on supplemental oxygen; Z79.4 Long term (current) use of insulin; Z79.01 Long term (current) use of anticoagulants; Z95.1 Presence of aortocoronary bypass graft
CPT/HCPCS: 84484-PO; 92507-GN; 92523-GN; 97116-GP; 97161-GP; 97166-GO; 97530-GP; 97535-GO; G8978-GP-CL; G8979-GP-CJ; G8987-GO-CL; G8988-GO-CK; G9165-GN-CI; G9165-GN-CJ; G9166-GN-CI; G9167-GN-CI; J1644; J1650; J1815; Q9957

== ENCOUNTER → 2018-07-08 | Outpatient (CLI) | payer OTHER | LOC: BHFA 14:00 | PROVIDERS: ATTEND Internal Medicine Cardiovascular Disease | DX: I50.22 Chronic systolic (congestive) heart failure (principal); I25.810 Atherosclerosis of coronary artery bypass graft(s) without angina pectoris; J44.9 Chronic obstructive pulmonary disease, unspecified; N18.9 Chronic kidney disease, unspecified ==